=== PATIENT | male | born 1970 | race African-American/Black ===

== ENCOUNTER 2020-08-10 23:42 | Emergency (ER) | payer OTHER ==
[~2020-08-10] VITALS: Ht 180.3 cm; Wt 68.0 kg
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
== END 2020-08-11 00:05 | disposition home or self-care (01) ==
LOC: ER 23:48
DX: Z48.00 Encounter for change or removal of nonsurgical wound dressing (principal); R04.0 Epistaxis; Z88.0 Allergy status to penicillin
CPT/HCPCS: A4663